=== PATIENT | male | born 1940 | race Caucasian/White ===

== ENCOUNTER 2020-09-12 21:30 | Emergency (ER) | payer MEDICARE ==
--- NOTE | 2020-09-12 22:28 | ED ---
Male Urogenital HPI - General Chief complaint: Urogenital Stated complaint: urogenital Time Seen by Provider: 09/12/20 21:39 Source: patient, RN notes reviewed, old records reviewed Mode of arrival: ambulatory Limitations: no limitations - History of Present Illness Initial comments: This is a 80-year-old male to the ER for evaluation patient has known large prostate known hematuria coming with abdominal pain difficulty with urination. Patient has otherwise no new complaints MD Complaint: dysuria -: hour(s) Location: right inguinal region, left inguinal region Severity scale (1-10): 3 Quality: sharp Consistency: constant Improves with: urination Worsens with: none new medication Reports: denies other symptoms, urinary retention - Related Data Allergies Allergy/AdvReac Type Severity Reaction Status Date / Time No Known Allergies Allergy Verified 09/12/20 21:35 Review of Systems ROS Statement: Those systems with pertinent positive or pertinent negative responses have been documented in the HPI. ROS Other: All systems not noted in ROS Statement are negative. Past Medical History Additional Past Medical History / Comment(s): urinary retention. prostate issues. prostate cx History of Any Multi-Drug Resistant Organisms: None Reported Additional Past Surgical History / Comment(s): prostate surgery Past Psychological History: No Psychological Hx Reported Smoking Status: Never smoker Past Alcohol Use History: None Reported Past Drug Use History: None Reported General Exam Limitations: no limitations General appearance: alert, in no apparent distress Head exam: Present: atraumatic, normocephalic, normal inspection Eye exam: Present: normal appearance, PERRL, EOMI. Absent: scleral icterus, conjunctival injection, periorbital swelling ENT exam: Present: normal exam, mucous membranes moist Neck exam: Present: normal inspection. Absent: tenderness, meningismus, lymphadenopathy Respiratory exam: Present: normal lung sounds bilaterally. Absent: respiratory distress, wheezes, rales, rhonchi, stridor Cardiovascular Exam: Present: regular rate, normal rhythm, normal heart sounds. Absent: systolic murmur, diastolic murmur, rubs, gallop, clicks GI/Abdominal exam: Present: soft, normal bowel sounds. Absent: distended, tenderness, guarding, rebound, rigid Extremities exam: Present: normal inspection, full ROM, normal capillary refill. Absent: tenderness, pedal edema, joint swelling, calf tenderness Back exam: Present: normal inspection Neurological exam: Present: alert, oriented X3, CN II-XII intact Psychiatric exam: Present: normal affect, normal mood Skin exam: Present: warm, dry, intact, normal color. Absent: rash Course Vital Signs 09/12/20 21:31 Temperature 98.2 F Pulse Rate 95 Respiratory 18 Rate Blood Pressure 166/97 O2 Sat by Pulse 98 Oximetry - Reevaluation(s) Reevaluation #1: 09/12/20 22:28 Record is reviewed Reevaluation #2: 09/12/20 22:28 Patient will have Garcia placed Medical Decision Making - Lab Data Result diagrams: 09/12/20 23:21 09/12/20 23:21 Lab Results 09/12/20 09/12/20 09/12/20 Range/Units 23:21 23:21 23:21 WBC 6.5 (3.8-10.6) k/uL RBC 4.71 (4.30-5.90) m/uL Hgb 15.2 (13.0-17.5) gm/dL Hct 44.0 (39.0-53.0) % MCV 93.4 (80.0-100.0) fL MCH 32.3 (25.0-35.0) pg MCHC 34.6 (31.0-37.0) g/dL RDW 13.3 (11.5-15.5) % Plt Count 222 (150-450) k/uL MPV 8.2 Neutrophils % 81 % Lymphocytes % 11 % Monocytes % 6 % Eosinophils % 0 % Basophils % 0 % Neutrophils # 5.3 (1.3-7.7) k/uL Lymphocytes # 0.7 L (1.0-4.8) k/uL Monocytes # 0.4 (0-1.0) k/uL Eosinophils # 0.0 (0-0.7) k/uL Basophils # 0.0 (0-0.2) k/uL PT 10.4 (9.0-12.0) sec INR 1.0 (<1.2) APTT 28.9 (22.0-30.0) sec Sodium (137-145) mmol/L Potassium (3.5-5.1) mmol/L Chloride (98-107) mmol/L Carbon Dioxide (22-30) mmol/L Anion Gap mmol/L BUN (9-20) mg/dL Creatinine (0.66-1.25) mg/dL Est GFR (CKD-EPI)AfAm (>60 ml/min/1.73 sqM) Est GFR (CKD-EPI)NonAf (>60 ml/min/1.73 sqM) Glucose (74-99) mg/dL Calcium (8.4-10.2) mg/dL Total Bilirubin (0.2-1.3) mg/dL AST (17-59) U/L ALT (4-49) U/L Alkaline Phosphatase (38-126) U/L Total Protein (6.3-8.2) g/dL Albumin (3.5-5.0) g/dL Amylase (30-110) U/L Lipase (23-300) U/L Urine Color Dark Red Urine Appearance Bloody (Clear) Urine RBC >182 H (0-5) /hpf Urine WBC 30 H (0-5) /hpf Urine WBC Clumps Few H (None) /hpf Urine Bacteria Rare H (None) /hpf Urine Mucus Many H (None) /hpf 09/12/20 Range/Units 23:21 WBC (3.8-10.6) k/uL RBC (4.30-5.90) m/uL Hgb (13.0-17.5) gm/dL Hct (39.0-53.0) % MCV (80.0-100.0) fL MCH (25.0-35.0) pg MCHC (31.0-37.0) g/dL RDW (11.5-15.5) % Plt Count (150-450) k/uL MPV Neutrophils % % Lymphocytes % % Monocytes % % Eosinophils % % Basophils % % Neutrophils # (1.3-7.7) k/uL Lymphocytes # (1.0-4.8) k/uL Monocytes # (0-1.0) k/uL Eosinophils # (0-0.7) k/uL Basophils # (0-0.2) k/uL PT (9.0-12.0) sec INR (<1.2) APTT (22.0-30.0) sec Sodium 132 L (137-145) mmol/L Potassium 4.0 (3.5-5.1) mmol/L Chloride 99 (98-107) mmol/L Carbon Dioxide 23 (22-30) mmol/L Anion Gap 10 mmol/L BUN 27 H (9-20) mg/dL Creatinine 0.72 (0.66-1.25) mg/dL Est GFR (CKD-EPI)AfAm >90 (>60 ml/min/1.73 sqM) Est GFR (CKD-EPI)NonAf 89 (>60 ml/min/1.73 sqM) Glucose 125 H (74-99) mg/dL Calcium 9.6 (8.4-10.2) mg/dL Total Bilirubin 0.7 (0.2-1.3) mg/dL AST 37 (17-59) U/L ALT 22 (4-49) U/L Alkaline Phosphatase 77 (38-126) U/L Total Protein 6.2 L (6.3-8.2) g/dL Albumin 3.6 (3.5-5.0) g/dL Amylase 94 (30-110) U/L Lipase 56 (23-300) U/L Urine Color Urine Appearance (Clear) Urine RBC (0-5) /hpf Urine WBC (0-5) /hpf Urine WBC Clumps (None) /hpf Urine Bacteria (None) /hpf Urine Mucus (None) /hpf Disposition Clinical Impression: Urinary retention, Hematuria Disposition: HOME SELF-CARE Condition: Good Instructions (If sedation given, give patient instructions): Urinary Retention in Men (ED), Hematuria (ED) Is patient prescribed a controlled substance at d/c from ED?: No Referrals: Loly Castorena MD [Primary Care Provider] - 1-2 days
[2020-09-12] MEDS ORDERED: SODIUM CHLORIDE 0.9% 1,000 ML IV STA ×2 (23:00)
[2020-09-12 23:41] LABS: Basophils % (A) 0 %; Eosinophils % (A) 0 %; HGB 15.2 gm/dL (13.0-17.5); Lymphocytes # (A) 0.7 k/uL (1.0-4.8); Lymphocytes % (A) 11 %; MCH 32.3 pg (25.0-35.0); MCHC 34.6 g/dL (31.0-37.0); MCV 93.4 fL (80.0-100.0); Mean Platelet Volume 8.2; Monocytes # (A) 0.4 k/uL (0-1.0); Monocytes % (A) 6 %; Neutrophils # (A) 5.3 k/uL (1.3-7.7); Neutrophils % (A) 81 %; Platelet Count 222 k/uL (150-450); RBC 4.71 m/uL (4.30-5.90); RDW 13.3 % (11.5-15.5); WBC 6.5 k/uL (3.8-10.6)
[2020-09-12 23:58] LABS: ALT 22 U/L (4-49); AST 37 U/L (17-59); African American GFR (CKD) >90 (>60 ml/min/1.73 sqM); Albumin 3.6 g/dL (3.5-5.0); Alkaline Phosphatase 77 U/L (38-126); Amylase 94 U/L (30-110); Anion Gap 10 mmol/L; Blood Urea Nitrogen 27 mg/dL (9-20); Calcium 9.6 mg/dL (8.4-10.2); Carbon Dioxide 23 mmol/L (22-30); Chloride 99 mmol/L (98-107); Glucose 125 mg/dL (74-99); Lipase 56 U/L (23-300); Non-African American GFR(CKD) 89 (>60 ml/min/1.73 sqM); Sodium 132 mmol/L (137-145); Total Bilirubin 0.7 mg/dL (0.2-1.3); Total Protein 6.2 g/dL (6.3-8.2)
[2020-09-13] LABS: Partial Thromboplastin Time 28.9 sec (22.0-30.0); Prothrombin Time 10.4 sec (9.0-12.0)
[2020-09-13 00:06] LABS: Bacteria,Urine Rare /hpf; Mucus,Urine Many /hpf; WBC,Urine 30 /hpf (0-5)
[2020-09-13 00:11] LABS: Appearance,Urine Bloody (Clear); Color,Urine Dark Red
[2020-09-13 00:12] LABS: RBC,Urine >182 /hpf (0-5)
[2020-09-13] MEDS ORDERED: CEPHALEXIN 500MG STARTER PACK 4 CAP BTL PO STA (00:35)
[2020-09-13] MEDS ORDERED: CEPHALEXIN 500 MG CAP PO STA (00:35)
[2020-09-13 01:52] VITALS: BP 150/82; PULSE 90; RESP 20; TEMP 97.9
== END 2020-09-13 01:10 | disposition home or self-care (01) ==
LOC: EC 21:30
DX: R33.9 Retention of urine, unspecified (principal); R31.9 Hematuria, unspecified; R30.0 Dysuria; R10.31 Right lower quadrant pain; R10.32 Left lower quadrant pain
CPT/HCPCS: 36415; 80053; 82150; 83690; 85025; 85610; 85730; 81001; 87086; 87077; 87186; 99284; 96365; 96361; 51702; J0696

== ENCOUNTER 2021-07-06 05:23 | Emergency (ER) | payer MEDICARE ==
[2021-07-06 05:31] VITALS: TEMP 97.7
[2021-07-06] MEDS ORDERED: LIDOCAINE URO-JET JELLY 2% 5 ML KIT URETHRAL ONE (06:21)
--- NOTE | 2021-07-06 06:25 | ED ---
Male Urogenital HPI - General Chief complaint: Urogenital Stated complaint: Blood in urine Time Seen by Provider: 07/06/21 05:58 Source: patient, family, RN notes reviewed, old records reviewed Mode of arrival: ambulatory Limitations: no limitations - History of Present Illness Initial comments: Patient is a 80-year-old male presents emergency department today with his . He complains of hematuria since Saturday evening. He states that he has had a history of enlarged prostate and has had previous TURP procedure. Patient reports that he started with some fullness and discomfort in his abdomen and worsening hematuria throughout the night decided to come to the ER. Patient reports previously on this happened he did require Meyers catheter. Patient states that he has had no fevers or chills. He denies flank pain. Patient is not on blood thinners. - Related Data Previous Rx's Medication Instructions Recorded Ciprofloxacin HCl [Cipro] 500 mg PO Q12HR 10 Days #20 tab 07/06/21 Allergies Allergy/AdvReac Type Severity Reaction Status Date / Time No Known Allergies Allergy Verified 07/06/21 05:31 Review of Systems ROS Statement: Those systems with pertinent positive or pertinent negative responses have been documented in the HPI. ROS Other: All systems not noted in ROS Statement are negative. Past Medical History Additional Past Medical History / Comment(s): urinary retention. prostate issues. prostate cx History of Any Multi-Drug Resistant Organisms: None Reported Additional Past Surgical History / Comment(s): prostate surgery Past Psychological History: No Psychological Hx Reported Smoking Status: Never smoker Past Alcohol Use History: None Reported Past Drug Use History: None Reported General Exam - General Exam Comments Initial Comments: Pleasant 80 year old male. Limitations: no limitations General appearance: alert, in no apparent distress Head exam: Present: atraumatic, normocephalic, normal inspection Eye exam: Present: normal appearance, PERRL, EOMI. Absent: scleral icterus, conjunctival injection, periorbital swelling ENT exam: Present: normal exam, mucous membranes moist Neck exam: Present: normal inspection. Absent: tenderness, meningismus, lymphadenopathy Respiratory exam: Present: normal lung sounds bilaterally. Absent: respiratory distress, wheezes, rales, rhonchi, stridor Cardiovascular Exam: Present: regular rate, normal rhythm, normal heart sounds. Absent: systolic murmur, diastolic murmur, rubs, gallop, clicks GI/Abdominal exam: Present: soft, normal bowel sounds, other (suprapubic tenderness ). Absent: distended, tenderness, guarding, rebound, rigid Extremities exam: Present: normal inspection, full ROM, normal capillary refill. Absent: tenderness, pedal edema, joint swelling, calf tenderness Back exam: Present: normal inspection Neurological exam: Present: alert, oriented X3, CN II-XII intact Psychiatric exam: Present: normal affect, normal mood Skin exam: Present: warm, dry, intact, normal color. Absent: rash Course Vital Signs 07/06/21 05:24 Temperature 97.7 F Pulse Rate 75 Respiratory 22 Rate Blood Pressure 138/87 Medical Decision Making - Medical Decision Making Patient's age 80-year-old male who presents with hematuria for the past 5 days. Patient at this time does have significant hematuria noted. Patient has had a history of TURP procedure. With concern for the amount of blood and developing clots and eventual urinary retention Patient had Meyers catheter placed. Patient tolerated this well. We did check a CBC which shows normal limits with no significant anemia. Chemistry panel shows normal kidney function. Urine culture will be completed. She was given an IV 1 g of Rocephin concern for occult infection with significant hematuria. He'll be started on ciprofloxacin taking this for one week. Prescription and sent to [facility]. Patient has an appointment with urologist on Saturday. Discussed meyers catheter to remain in until then. Patient had meyers catheter education. - Lab Data Result diagrams: 07/06/21 06:38 07/06/21 06:38 Lab Results 07/06/21 07/06/21 07/06/21 Range/Units 06:10 06:38 06:38 WBC 3.5 L (3.8-10.6) k/uL RBC 5.18 (4.30-5.90) m/uL Hgb 16.1 (13.0-17.5) gm/dL Hct 49.0 (39.0-53.0) % MCV 94.7 (80.0-100.0) fL MCH 31.1 (25.0-35.0) pg MCHC 32.8 (31.0-37.0) g/dL RDW 13.5 (11.5-15.5) % Plt Count 213 (150-450) k/uL MPV 8.2 Sodium 137 (137-145) mmol/L Potassium 4.1 (3.5-5.1) mmol/L Chloride 107 (98-107) mmol/L Carbon Dioxide 25 (22-30) mmol/L Anion Gap 5 mmol/L BUN 19 (9-20) mg/dL Creatinine 0.80 (0.66-1.25) mg/dL Est GFR (CKD-EPI)AfAm >90 (>60 ml/min/1.73 sqM) Est GFR (CKD-EPI)NonAf 86 (>60 ml/min/1.73 sqM) Glucose 93 (74-99) mg/dL Calcium 9.1 (8.4-10.2) mg/dL Urine Color Red Urine Appearance Bloody (Clear) Urine RBC >182 H (0-5) /hpf Urine WBC >182 H (0-5) /hpf Disposition Clinical Impression: Hematuria, Hx of transurethral prostatectomy Disposition: HOME SELF-CARE Condition: Good Instructions (If sedation given, give patient instructions): Hematuria (ED), Meyers Catheter Placement and Care (ED) Additional Instructions: Patient advised follow-up with urologist on Saturday. Patient should have the Meyers catheter remain in place until then. Patient should increase fluids. Take antibiotic with food. Take probiotic supplement daily as well. Prescriptions: Ciprofloxacin HCl [Cipro] 500 mg PO Q12HR 10 Days #20 tab Is patient prescribed a controlled substance at d/c from ED?: No Referrals: Yaquelin Nice MD [Primary Care Provider] - 1-2 days Time of Disposition: 07:26
[2021-07-06 06:41] LABS: RBC,Urine >182 /hpf (0-5); WBC,Urine >182 /hpf (0-5)
[2021-07-06 06:43] LABS: Appearance,Urine Bloody (Clear); Color,Urine Red
[2021-07-06] MEDS ORDERED: cefTRIAXone IN SWFI 1,000 MG/10 ML SYRINGE IVP STA (06:55)
[2021-07-06 06:58] LABS: HGB 16.1 gm/dL (13.0-17.5); MCH 31.1 pg (25.0-35.0); MCHC 32.8 g/dL (31.0-37.0); MCV 94.7 fL (80.0-100.0); Mean Platelet Volume 8.2; Platelet Count 213 k/uL (150-450); RBC 5.18 m/uL (4.30-5.90); RDW 13.5 % (11.5-15.5); WBC 3.5 k/uL (3.8-10.6)
[2021-07-06 07:13] LABS: African American GFR (CKD) >90 (>60 ml/min/1.73 sqM); Anion Gap 5 mmol/L; Blood Urea Nitrogen 19 mg/dL (9-20); Calcium 9.1 mg/dL (8.4-10.2); Carbon Dioxide 25 mmol/L (22-30); Chloride 107 mmol/L (98-107); Glucose 93 mg/dL (74-99); Non-African American GFR(CKD) 86 (>60 ml/min/1.73 sqM); Potassium 4.1 mmol/L (3.5-5.1); Sodium 137 mmol/L (137-145)
[2021-07-06 07:34] VITALS: BP 127/86; PULSE 63; RESP 18
[2021-07-06 08:27] LABS: Eosinophils # (M) 0.04 k/uL (0-0.7); Lymphocytes # (M) 2.21 k/uL (1.0-4.8); Monocytes # (M) 0.49 k/uL (0-1.0); Neutrophils # (M) 0.77 k/uL (1.3-7.7); Neutrophils % (M) 22 %; Nucleated Red Blood Cells 0 /100 WBC (0-0); Total Cells Counted 100
[2021-07-06 08:44] LABS: RBC Morphology Normal
== END 2021-07-06 07:50 | disposition home or self-care (01) ==
LOC: EC 05:23
DX: R31.9 Hematuria, unspecified (principal); Z90.79 Acquired absence of other genital organ(s)
CPT/HCPCS: 99283; 96374; 51702; 51798; 36415; 80048; 85025; 81001; 87086; J0696; 99284

== ENCOUNTER 2022-04-17 02:19 | Emergency (ER) | payer MEDICARE ==
[2022-04-17 02:27] VITALS: TEMP 98.6
--- NOTE | 2022-04-17 03:36 | ED ---
General Adult HPI - General Chief complaint: Urogenital Stated complaint: Unable to Urinate Time Seen by Provider: 04/17/22 02:31 Source: patient, RN notes reviewed Mode of arrival: ambulatory Limitations: no limitations - History of Present Illness Initial comments: 81-year-old male presents to the emergency Department with complaints of inability to urinate. States he had prostate surgery 2 weeks ago. Describes his urine as clear-yellow with sediment. Has dribbled some urine this evening, however has been unable to empty his bladder since last night. States he is scheduled to see his urologist for recheck at 11 AM, however is growing concerned with his inability to pass urine. Denies fever, chills, headache chest pain, shortness of breath, abdominal pain, nausea, vomiting, flank and back pain, and lower extremity edema. - Related Data Previous Rx's Medication Instructions Recorded Ciprofloxacin HCl [Cipro] 500 mg PO Q12HR 10 Days #20 tab 07/06/21 Ciprofloxacin HCl [Cipro] 500 mg PO Q12HR #20 tablet 04/17/22 Allergies Allergy/AdvReac Type Severity Reaction Status Date / Time No Known Allergies Allergy Verified 07/06/21 05:31 Review of Systems ROS Statement: Those systems with pertinent positive or pertinent negative responses have been documented in the HPI. ROS Other: All systems not noted in ROS Statement are negative. Past Medical History Additional Past Medical History / Comment(s): urinary retention. prostate issues. prostate cx History of Any Multi-Drug Resistant Organisms: None Reported Additional Past Surgical History / Comment(s): prostate surgery Past Psychological History: No Psychological Hx Reported Smoking Status: Never smoker Past Alcohol Use History: None Reported Past Drug Use History: None Reported General Exam Limitations: no limitations General appearance: alert, in no apparent distress Respiratory exam: Present: normal lung sounds bilaterally. Absent: respiratory distress, wheezes, rales, rhonchi, stridor Cardiovascular Exam: Present: regular rate, normal rhythm, normal heart sounds. Absent: systolic murmur, diastolic murmur, rubs, gallop, clicks GI/Abdominal exam: Present: soft, distended (Mild distention of the lower abdomen in the suprapubic area. Minimal tenderness, no guarding or rebound.), normal bowel sounds. Absent: tenderness, guarding, rebound, rigid Back exam: Absent: CVA tenderness (R), CVA tenderness (L) Neurological exam: Present: alert, oriented X3 Psychiatric exam: Present: normal affect, normal mood Course Vital Signs 04/17/22 04/17/22 02:23 04:59 Temperature 98.6 F Pulse Rate 84 78 Respiratory 18 15 Rate Blood Pressure 165/80 144/78 O2 Sat by Pulse 98 100 Oximetry - Reevaluation(s) Reevaluation #1: 04/17/22 03:35 Patient reports urged to urinate and has made several attempts since arrival. Discussed bladder scan with likely Garcia placement. Patient is agreeable with this plan of care. 04/17/22 04:00 Bladder scanned 370ml, straight cath urine obtained and sent for analysis. Urine was dark yellow with significant amount of sediment. Will reevaluate. 04/17/22 04:40 Patient will be discharged home to follow up with his urologist as scheduled. Antibiotic treatment initiated. He is able to pass urine. Medical Decision Making - Medical Decision Making 81-year-old male with recent prostatic surgery presents to the emergency department for evaluation of urinary retention. Upon exam, patient is well- appearing, though in moderate discomfort. Abdomen is soft with some suprapubic tenderness. Bladder scan shows 370ml. Straight cath urine sample was obtained showing the large leukocyte esterase, more than 182 rbc's per HPF, I 144 urine WBCs per HPF, and moderate amount of urine WBC clumps. Antibiotic treatment with Cipro was initiated. Patient was able to urinate after straight cath. He will be discharged home to follow up with his urologist today as scheduled. Return parameters discussed in detail. Patient verbalizes understanding and agrees with this plan. Attending: Skylar Was pt. sent in by a medical professional or institution? @ -No Did you speak to anyone other than the patient for history? @ -No Did you review nursing and triage notes? @ -Yes, agree Were old charts reviewed? @ -No Differential Diagnosis? @ -UTI, urine retention, BPH, cystitis, prostatitis, this is not meant to be an exhaustive list EKG interpreted by me (3pts min.)? @ -Not applicable X-rays interpreted by me (1pt min.)? @ -Not applicable CT interpreted by me (1pt min.)? @ -Not applicable U/S interpreted by me (1pt. min.)? @ -Not applicable What testing was considered but not performed? (CT, X-rays, U/S, labs)? Why? @ -Laboratory studies were considered, however patient had no systemic symptoms therefore a urinalysis was performed What meds were considered but not given? Why? @ -Considered something for pain, however patient felt better after straight cath Did you discuss the management of the patient with other professionals? @ -None Did you reconcile home meds? @ -No Was smoking cessation discussed for >3mins.? @ -No Was critical care preformed (if so, how long)? @ -No Were there social determinants of health that impacted care today? How? (Homelessness, low income, unemployed, alcoholism, drug addiction, transportation, low edu. Level, literacy, decrease access to med. care, shelter, rehab)? @ -No Was there de-escalation of care discussed even if they declined? (Discuss DNR or withdrawal of care, Hospice)? @ -No What co-morbidities impacted this encounter? (DM, HTN, Smoking, COPD, CAD, Cancer, CVA, Hep., AIDS, mental health diagnosis, sleep apnea, morbid obesity)? @ -No Was patient admitted / discharged? @ -Discharged Undiagnosed new problem with uncertain prognosis? @ -None Drug Therapy requiring intensive monitoring for toxicity (Heparin, Nitro, Insulin, Cardizem)? @ -None Were any procedures done? @ -None Diagnosis/symptom? @ -Urine retention Acute, or Chronic, or Acute on Chronic? @ -Acute Uncomplicated (without systemic symptoms) or Complicated (systemic symptoms)? @ -Complicated Side effects of treatment? @ -None Exacerbation, Progression, or Severe Exacerbation] @ -No Poses a threat to life or bodily function? @ -Moderate risk to bodily function Diagnosis/symptom? @ -UTI Acute, or Chronic, or Acute on Chronic? @ -Acute Uncomplicated (without systemic symptoms) or Complicated (systemic symptoms)? @ -Uncomplicated Side effects of treatment? @ -None Exacerbation, Progression, or Severe Exacerbation] @ -no Poses a threat to life or bodily function? @ -Low risk - Lab Data Lab Results 04/17/22 Range/Units 03:47 Urine Color Yellow Urine Appearance Turbid (Clear) Urine pH 7.5 (5.0-8.0) Ur Specific [place] 1.016 (1.001-1.035) Urine Protein 2+ H (Negative) Urine Glucose (UA) Negative (Negative) Urine Ketones Negative (Negative) Urine Blood Moderate H (Negative) Urine Nitrite Positive (Negative) Urine Bilirubin Negative (Negative) Urine Urobilinogen <2.0 (<2.0) mg/dL Ur Leukocyte Esterase Large H (Negative) Urine RBC >182 H (0-5) /hpf Urine WBC 144 H (0-5) /hpf Urine WBC Clumps Moderate H (None) /hpf Urine Bacteria Rare H (None) /hpf Urine Mucus Occasional H (None) /hpf Disposition Clinical Impression: Urinary tract infection, Urinary retention Disposition: HOME SELF-CARE Condition: Stable Instructions (If sedation given, give patient instructions): Urinary Retention in Men (ED) Additional Instructions: Discuss urine retention with urologist at appointment today. You are being prescribed an antibiotic due to UTI. Return to the emergency department with any new, worsening, or concerning symptoms. Prescriptions: Ciprofloxacin HCl [Cipro] 500 mg PO Q12HR #20 tablet Is patient prescribed a controlled substance at d/c from ED?: No Referrals: Yaquelin Nice MD [Primary Care Provider] - 1-2 days Time of Disposition: 04:45
[2022-04-17 04:19] LABS: Appearance,Urine Turbid (Clear); Bacteria,Urine Rare /hpf; Bilirubin,Urine Negative (Negative); Blood,Urine Moderate (Negative); Color,Urine Yellow; Glucose,Urine (UA) Negative (Negative); Ketones,Urine Negative (Negative); Leukocyte Esterase,Urine Large (Negative); Mucus,Urine Occasional /hpf; Nitrite,Urine Positive (Negative); PH, Urine 7.5 (5.0-8.0); Protein,Urine 2+ (Negative); RBC,Urine >182 /hpf (0-5); Specific Gravity,Urine 1.016 (1.001-1.035); Urobilinogen,Urine <2.0 mg/dL (<2.0); WBC,Urine 144 /hpf (0-5)
[2022-04-17] MEDS ORDERED: CIPROFLOXACIN HCL 500 MG TAB PO STA (04:39)
[2022-04-17 05:00] VITALS: BP 144/78; PULSE 78; RESP 15
== END 2022-04-17 05:00 | disposition home or self-care (01) ==
LOC: EC 02:19
DX: N39.0 Urinary tract infection, site not specified (principal); R33.9 Retention of urine, unspecified
CPT/HCPCS: 81001; 87086; 99283

== ENCOUNTER 2023-05-16 11:05 | Emergency (ER) | payer MEDICARE ==
--- NOTE | 2023-05-16 11:58 | ED ---
General Adult HPI - General Chief complaint: Urogenital Stated complaint: Unable to urinate, catheter not working Time Seen by Provider: 05/16/23 11:33 Source: patient, RN notes reviewed Mode of arrival: ambulatory Limitations: no limitations - History of Present Illness Initial comments: Patient 82-year-old male presented to the emergency room today with chief complaint hematuria. Patient does admit that he noticed a small mount of blood in his urine yesterday. States it is worse in middle the night. He states he was able to see his urologist this morning who did place a Garcia catheter and try to flush in the office. He was directed that he should go to the hospital. He states he was unable to find the hospital that is urologist wanted to go to so he came back here to [facility] as he lives close to this area. Patient states that Garcia catheter seems to be draining patient is seen blood in the back. He denies any discomfort at this time. He denies any dizziness, lightheadedness, shortness of breath. Denies any other complaints or any other symptoms. - Related Data Home Medications Medication Instructions Recorded Confirmed Ascorbic Acid [Vitamin C] 500 mg PO DAILY 05/16/23 05/16/23 Calcium Carbonate [Calcium] 2,400 mg PO DAILY 05/16/23 05/16/23 Cholecalciferol [Vitamin D3 (25 200 mcg PO DAILY 05/16/23 05/16/23 Mcg = 1000 Iu)] Curcumin-Phosphatidylcholine 500 mg PO DAILY 05/16/23 05/16/23 [Curcumin Phytosome] L.acidoph,Paracasei, B.lactis 1 cap PO DAILY 05/16/23 05/16/23 [Probiotic] Liver Detox Supplement 1 cap PO DAILY 05/16/23 05/16/23 Niacin 500 mg PO DAILY 05/16/23 05/16/23 [place]sey Guard Supplement 6 cap PO DAILY 05/16/23 05/16/23 Prasterone (Dhea) [Dhea] 50 mg PO DAILY 05/16/23 05/16/23 Selenium 100 mcg PO DAILY 05/16/23 05/16/23 Tamsulosin [Flomax] 0.4 mg PO DAILY 05/16/23 05/16/23 Thyroid,Pork [Freight Car Builder Thyroid] 60 mg PO DAILY 05/16/23 05/16/23 Ubidecarenone [Q-Sorb Co Q-10] 200 mg PO DAILY 05/16/23 05/16/23 Vitamin B Complex 1 cap PO DAILY 05/16/23 05/16/23 Zinc Gluconate [Zinc] 50 mg PO DAILY 05/16/23 05/16/23 Allergies Allergy/AdvReac Type Severity Reaction Status Date / Time No Known Allergies Allergy Verified 05/16/23 14:15 Review of Systems ROS Statement: Those systems with pertinent positive or pertinent negative responses have been documented in the HPI. ROS Other: All systems not noted in ROS Statement are negative. Past Medical History Past Medical History: Cancer Additional Past Medical History / Comment(s): urinary retention. prostate issues. prostate cx History of Any Multi-Drug Resistant Organisms: None Reported Past Surgical History: Orthopedic Surgery Additional Past Surgical History / Comment(s): prostate surgery Past Psychological History: No Psychological Hx Reported Smoking Status: Never smoker Past Alcohol Use History: None Reported Past Drug Use History: None Reported General Exam - General Exam Comments Initial Comments: General: The patient is awake and alert, in no distress, and does not appear acutely ill. Eye: Extra-ocular movements are intact. There is normal conjunctiva bilaterally. No signs of icterus. Ears, nose, mouth and throat: There are moist mucous membranes and no oral lesions. Neck: The neck is supple, there is no tenderness or JVD. Respiratory: respirations are non-labored Gastrointestinal: Abdomen soft on palpation nontender. No rebound, guarding. Musculoskeletal: Normal ROM, no tenderness. Neurological: A&O x 3. CN II-XII intact, There are no obvious motor or sensory deficits. Coordination appears grossly intact. Speech is normal. Skin: Skin is warm and dry and no rashes or lesions are noted. Psychiatric: Cooperative, appropriate mood & affect, normal judgment. Limitations: no limitations Course Vital Signs 05/16/23 05/16/23 05/16/23 11:13 14:40 14:56 Temperature 98.1 F 98.1 F 97.5 F L Pulse Rate 82 76 63 Respiratory 20 18 18 Rate Blood Pressure 138/77 130/68 139/75 O2 Sat by Pulse 96 99 98 Oximetry Medical Decision Making - Medical Decision Making History was obtained from patient/Nurse/Family/ Initial assessment and chief complaint: Hematuria Chronic conditions affecting care: Enlarged prostate, prostate cancer Social determinants affecting care: None Patient 82-year-old male presented to the emergency room today with a chief complaint of hematuria. He does admit that symptoms started middle of the night. Went to his urologist office. Did have a Garcia catheter that was placed and they were trying to flush but was recommended to come to the emergency r oom. Patient denies feeling dizzy, lightheaded. No pain. Garcia catheter in place. Was irrigated by nursing staff. The emergency room. Has cleared any clots. Bladder scan was obtained which was negative for any sign of retention. Patient Garcia catheter still draining. Blood work was obtained showed stable hemoglobin. Remaining labs unremarkable. Vitals have been stable here in the emergency room. Patient does feel comfortable being discharged home to follow- up with his urologist. Advised that if there is any retention to return here to the emergency room. Patient and at bedside state understanding and agreement with the plan. - Lab Data Result diagrams: 05/16/23 12:43 05/16/23 12:19 Lab Results 05/16/23 05/16/23 05/16/23 Range/Units 12:19 12:19 12:19 WBC (3.8-10.6) k/uL RBC (4.30-5.90) m/uL Hgb (13.0-17.5) gm/dL Hct (39.0-53.0) % MCV (80.0-100.0) fL MCH (25.0-35.0) pg MCHC (31.0-37.0) g/dL RDW (11.5-15.5) % Plt Count (150-450) k/uL MPV Neutrophils % % Lymphocytes % % Monocytes % % Eosinophils % % Basophils % % Neutrophils # (1.3-7.7) k/uL Lymphocytes # (1.0-4.8) k/uL Monocytes # (0-1.0) k/uL Eosinophils # (0-0.7) k/uL Basophils # (0-0.2) k/uL PT 10.9 (10.0-12.5) sec INR 1.0 (<1.2) APTT 34.0 H (22.0-30.0) sec Sodium 137 (137-145) mmol/L Potassium 4.0 (3.5-5.1) mmol/L Chloride 106 (98-107) mmol/L Carbon Dioxide 25 (22-30) mmol/L Anion Gap 6 mmol/L BUN 23 H (9-20) mg/dL Creatinine 0.72 (0.66-1.25) mg/dL Est GFR (CKD-EPI)AfAm >90 (>60 ml/min/1.73 sqM) Est GFR (CKD-EPI)NonAf 88 (>60 ml/min/1.73 sqM) Glucose 120 H (74-99) mg/dL Calcium 8.8 (8.4-10.2) mg/dL Total Bilirubin 1.0 (0.2-1.3) mg/dL AST 44 (17-59) U/L ALT 23 (4-49) U/L Alkaline Phosphatase 81 (38-126) U/L Total Protein 7.0 (6.3-8.2) g/dL Albumin 3.5 (3.5-5.0) g/dL Urine Color Red Urine Appearance Clear (Clear) Urine RBC 12 H (0-5) /hpf Urine WBC 4 (0-5) /hpf Urine Bacteria Occasional H (None) /hpf Urine Mucus Rare H (None) /hpf 05/16/23 Range/Units 12:43 WBC 4.8 (3.8-10.6) k/uL RBC 5.11 (4.30-5.90) m/uL Hgb 15.6 (13.0-17.5) gm/dL Hct 47.1 (39.0-53.0) % MCV 92.1 (80.0-100.0) fL MCH 30.4 (25.0-35.0) pg MCHC 33.0 (31.0-37.0) g/dL RDW 14.2 (11.5-15.5) % Plt Count 265 (150-450) k/uL MPV 8.8 Neutrophils % 54 % Lymphocytes % 30 % Monocytes % 11 % Eosinophils % 0 % Basophils % 1 % Neutrophils # 2.6 (1.3-7.7) k/uL Lymphocytes # 1.4 (1.0-4.8) k/uL Monocytes # 0.5 (0-1.0) k/uL Eosinophils # 0.0 (0-0.7) k/uL Basophils # 0.0 (0-0.2) k/uL PT (10.0-12.5) sec INR (<1.2) APTT (22.0-30.0) sec Sodium (137-145) mmol/L Potassium (3.5-5.1) mmol/L Chloride (98-107) mmol/L Carbon Dioxide (22-30) mmol/L Anion Gap mmol/L BUN (9-20) mg/dL Creatinine (0.66-1.25) mg/dL Est GFR (CKD-EPI)AfAm (>60 ml/min/1.73 sqM) Est GFR (CKD-EPI)NonAf (>60 ml/min/1.73 sqM) Glucose (74-99) mg/dL Calcium (8.4-10.2) mg/dL Total Bilirubin (0.2-1.3) mg/dL AST (17-59) U/L ALT (4-49) U/L Alkaline Phosphatase (38-126) U/L Total Protein (6.3-8.2) g/dL Albumin (3.5-5.0) g/dL Urine Color Urine Appearance (Clear) Urine RBC (0-5) /hpf Urine WBC (0-5) /hpf Urine Bacteria (None) /hpf Urine Mucus (None) /hpf Disposition Clinical Impression: Hematuria Disposition: HOME SELF-CARE Instructions (If sedation given, give patient instructions): Hematuria (ED) Additional Instructions: Please follow-up with urologist as discussed. Return to the emergency room for any other concerns. Is patient prescribed a controlled substance at d/c from ED?: No Referrals: Yaquelin Nice MD [Primary Care Provider] - 1-2 days Time of Disposition: 16:13
[2023-05-16] MEDS ORDERED: SODIUM CHLORIDE 0.9% IRRIGATIO 3,000 ML IRRIGATION ONE (12:16)
[2023-05-16 12:55] LABS: ALT 23 U/L (4-49); African American GFR (CKD) >90 (>60 ml/min/1.73 sqM); Albumin 3.5 g/dL (3.5-5.0); Anion Gap 6 mmol/L; Blood Urea Nitrogen 23 mg/dL (9-20); Calcium 8.8 mg/dL (8.4-10.2); Carbon Dioxide 25 mmol/L (22-30); Chloride 106 mmol/L (98-107); Glucose 120 mg/dL (74-99); Non-African American GFR(CKD) 88 (>60 ml/min/1.73 sqM); Sodium 137 mmol/L (137-145)
[2023-05-16 12:57] LABS: Prothrombin Time 10.9 sec (10.0-12.5)
[2023-05-16 12:59] LABS: AST 44 U/L (17-59); Alkaline Phosphatase 81 U/L (38-126)
[2023-05-16 13:07] LABS: Bacteria,Urine Occasional /hpf; Mucus,Urine Rare /hpf; RBC,Urine 12 /hpf (0-5); WBC,Urine 4 /hpf (0-5)
[2023-05-16 13:11] LABS: Appearance,Urine Clear (Clear); Color,Urine Red
[2023-05-16 13:46] LABS: Basophils % (A) 1 %; Eosinophils % (A) 0 %; HCT 47.1 % (39.0-53.0); HGB 15.6 gm/dL (13.0-17.5); Lymphocytes # (A) 1.4 k/uL (1.0-4.8); Lymphocytes % (A) 30 %; MCH 30.4 pg (25.0-35.0); MCV 92.1 fL (80.0-100.0); Mean Platelet Volume 8.8; Monocytes # (A) 0.5 k/uL (0-1.0); Monocytes % (A) 11 %; Neutrophils # (A) 2.6 k/uL (1.3-7.7); Neutrophils % (A) 54 %; Platelet Count 265 k/uL (150-450); RBC 5.11 m/uL (4.30-5.90); RDW 14.2 % (11.5-15.5); WBC 4.8 k/uL (3.8-10.6)
[2023-05-16] MEDS ORDERED: ACETAMINOPHEN TAB 500 MG TAB PO STA (14:51)
[2023-05-16 18:19] VITALS: BP 120/73; PULSE 69; RESP 20; TEMP 98.2
== END 2023-05-16 18:04 | disposition home or self-care (01) ==
LOC: EC 11:05
DX: R31.9 Hematuria, unspecified (principal)
CPT/HCPCS: 36415; 80053; 81001; 85025; 85610; 85730; 99283

== ENCOUNTER 2023-05-19 19:16 | Emergency (ER) | payer MEDICARE ==
[2023-05-19 20:00] VITALS: RESP 18; TEMP 98.4
[2023-05-19 20:53] VITALS: BP 125/73; PULSE 89
--- NOTE | 2023-05-19 21:32 | ED ---
General Adult HPI - General Chief complaint: Urogenital Stated complaint: cath issues Time Seen by Provider: 05/19/23 20:42 Source: patient Mode of arrival: ambulatory Limitations: no limitations - History of Present Illness Initial comments: 82-year-old male with a past medical history significant for urinary retention presenting to the ED with a chief complaint of hematuria. Patient states that he recently had a Garcia catheter placed by his urologist secondary to urinary retention and hematuria. Patient states that he is presenting again today be cause he still having hematuria and is unsure of what to do. They have been flushing this well with no difficulties. It is still draining. Denies fever or any other new symptoms. No other complaints at this time. - Related Data Home Medications Medication Instructions Recorded Confirmed Ascorbic Acid [Vitamin C] 500 mg PO DAILY 05/16/23 05/16/23 Calcium Carbonate [Calcium] 2,400 mg PO DAILY 05/16/23 05/16/23 Cholecalciferol [Vitamin D3 (25 200 mcg PO DAILY 05/16/23 05/16/23 Mcg = 1000 Iu)] Curcumin-Phosphatidylcholine 500 mg PO DAILY 05/16/23 05/16/23 [Curcumin Phytosome] L.acidoph,Paracasei, B.lactis 1 cap PO DAILY 05/16/23 05/16/23 [Probiotic] Liver Detox Supplement 1 cap PO DAILY 05/16/23 05/16/23 Niacin 500 mg PO DAILY 05/16/23 05/16/23 Mulberry Guard Supplement 6 cap PO DAILY 05/16/23 05/16/23 Prasterone (Dhea) [Dhea] 50 mg PO DAILY 05/16/23 05/16/23 Selenium 100 mcg PO DAILY 05/16/23 05/16/23 Tamsulosin [Flomax] 0.4 mg PO DAILY 05/16/23 05/16/23 Thyroid,Pork [Kitchen Food Server Thyroid] 60 mg PO DAILY 05/16/23 05/16/23 Ubidecarenone [Q-Sorb Co Q-10] 200 mg PO DAILY 05/16/23 05/16/23 Vitamin B Complex 1 cap PO DAILY 05/16/23 05/16/23 Zinc Gluconate [Zinc] 50 mg PO DAILY 05/16/23 05/16/23 Allergies Allergy/AdvReac Type Severity Reaction Status Date / Time No Known Allergies Allergy Verified 05/19/23 19:39 Review of Systems ROS Statement: Those systems with pertinent positive or pertinent negative responses have been documented in the HPI. ROS Other: All systems not noted in ROS Statement are negative. Past Medical History Past Medical History: Cancer Additional Past Medical History / Comment(s): urinary retention. prostate issues. prostate cx History of Any Multi-Drug Resistant Organisms: None Reported Past Surgical History: Orthopedic Surgery Additional Past Surgical History / Comment(s): prostate surgery Past Psychological History: No Psychological Hx Reported Smoking Status: Never smoker Past Alcohol Use History: None Reported Past Drug Use History: None Reported General Exam Limitations: no limitations General appearance: alert, in no apparent distress Eye exam: Present: normal appearance Neck exam: Present: normal inspection Respiratory exam: Present: normal lung sounds bilaterally Cardiovascular Exam: Present: regular rate, normal rhythm GI/Abdominal exam: Present: soft exam: Present: other (Garcia catheter in place draining well with no problems. Hematuria in the bag however does appear clear and blood-tinged. No debris in the bag. ) Extremities exam: Present: normal inspection Course Vital Signs 05/19/23 05/19/23 19:35 20:48 Temperature 98.4 F Pulse Rate 95 89 Respiratory 18 18 Rate Blood Pressure 126/76 125/73 O2 Sat by Pulse 98 97 Oximetry Medical Decision Making - Medical Decision Making Was pt. sent in by a medical professional or institution (, PA, ECHOCARDIOLOGIST, urgent care, hospital, or usp...) When possible be specific @ -No Did you speak to anyone other than the patient for history (EMS, parent, family, police, friend...)? What history was obtained from this source @ -No Did you review nursing and triage notes (agree or disagree)? Why? @ -I reviewed and agree with nursing and triage notes Were old charts reviewed (outside hosp., previous admission, EMS record, old EKG, old radiological studies, urgent care reports/EKG's, usp records)? Report findings @ -Prior visit reviewed showing history of hematuria. Last UA did show positive blood and RBCs. This was on 05/16/2023. Differential Diagnosis (chest pain, altered mental status, abdominal pain women, abdominal pain men, vaginal bleeding, weakness, fever, dyspnea, syncope, headache, dizziness, GI bleed, back pain, seizure, CVA, palpatations, mental health, musculoskeletal)? @ -Pyelonephritis, urinary tract infection, urinary retention. This is not meant to be an all-inclusive list. EKG interpreted by me (3pts min.). @ -None X-rays interpreted by me (1pt min.). @ -None done CT interpreted by me (1pt min.). @ -None done U/S interpreted by me (1pt. min.). @ -None done What testing was considered but not performed or refused? (CT, X-rays, U/S, labs)? Why? @ -None What meds were considered but not given or refused? Why? @ -None Did you discuss the management of the patient with other professionals (professionals i.e. , PA, ECHOCARDIOLOGIST, lab, RT, psych nurse, outreach and education social worker, piped buttonhole machine operator, teacher, global safety officer, director of casework services)? Give summary @ -No Was smoking cessation discussed for >3mins.? @ -No Was critical care preformed (if so, how long)? @ -No Were there social determinants of health that impacted care today? How? (Homelessness, low income, unemployed, alcoholism, drug addiction, transportation, low edu. Level, literacy, decrease access to med. care, half-way, rehab)? @ -No Was there de-escalation of care discussed even if they declined (Discuss DNR or withdrawal of care, Hospice)? DNR status @ -No What co-morbidities impacted this encounter? (DM, HTN, Smoking, COPD, CAD, Cancer, CVA, ARF, Chemo, Hep., AIDS, mental health diagnosis, sleep apnea, morbid obesity)? @ -BPH Was patient admitted / discharged? Hospital course, mention meds given and route, prescriptions, significant lab abnormalities, going to OR and other pertinent info. @ -Discharge 82-year-old male with recent history of Garcia placement secondary to urinary retention presenting to the ED with complaints of hematuria which has been ongoing since prior to Garcia placement. Patient notes he has follow-up with his urologist in [place]. No new changes. This is flushing well. No urinary re tention. No new symptoms at this time. No fever or chills. Patient and family reassured. Advised to follow-up with urology as scheduled. Discharged home in stable condition. Discussed return precautions with patient and family who verbalized agreement. Patient and family were also given referral to see our urologist here in [place] if they would like to have follow-up closer to them. Undiagnosed new problem with uncertain prognosis? @ -No Drug Therapy requiring intensive monitoring for toxicity (Heparin, Nitro, Insulin, Cardizem)? @ -No Were any procedures done? @ -No Diagnosis/symptom? @ -Hematuria Acute, or Chronic, or Acute on Chronic? @ -Acute Uncomplicated (without systemic symptoms) or Complicated (systemic symptoms)? @ -Uncomplicated Side effects of treatment? @ -No Exacerbation, Progression, or Severe Exacerbation? @ -No Poses a threat to life or bodily function? How? (Chest pain, [place], [place], pneumonia, PE, COPD, DKA, ARF, appy, cholecystitis, CVA, Diverticulitis, Homicidal, Suicidal, threat to staff... and all critical care pts) @ -No Disposition Clinical Impression: Hematuria Disposition: HOME SELF-CARE Condition: Good Additional Instructions: Please return to the Emergency Department if symptoms worsen or any other concerns. Please follow-up with your urologist. Is patient prescribed a controlled substance at d/c from ED?: No Referrals: Yaquelin Nice MD [Primary Care Provider] - 1-2 days Time of Disposition: 21:37
== END 2023-05-19 21:58 | disposition home or self-care (01) ==
LOC: EC 19:16
DX: R31.9 Hematuria, unspecified (principal)
CPT/HCPCS: 99283

== ENCOUNTER 2023-05-30 03:57 | Emergency (ER) | payer MEDICARE ==
[2023-05-30 04:26] VITALS: BP 155/88; PULSE 68; RESP 18; TEMP 98.1
[2023-05-30 05:07] LABS: Appearance,Urine Cloudy (Clear); Bacteria,Urine Few /hpf; Bilirubin,Urine Negative (Negative); Blood,Urine Small (Negative); Color,Urine Light Yellow; Glucose,Urine (UA) Negative (Negative); Ketones,Urine Negative (Negative); Leukocyte Esterase,Urine Large (Negative); Mucus,Urine Rare /hpf; Nitrite,Urine Negative (Negative); PH, Urine 6.5 (5.0-8.0); Protein,Urine 1+ (Negative); RBC,Urine 25 /hpf (0-5); Specific Gravity,Urine 1.013 (1.001-1.035); Urobilinogen,Urine <2.0 mg/dL (<2.0); WBC,Urine >182 /hpf (0-5)
--- NOTE | 2023-05-30 05:07 | ED ---
General Adult HPI - General Chief complaint: Urogenital Stated complaint: unable to urinate Time Seen by Provider: 05/30/23 04:11 Source: patient, RN notes reviewed, old records reviewed Mode of arrival: ambulatory Limitations: no limitations - History of Present Illness Initial comments: Patient is an 82-year-old male with past medical history remarkable for prostate cancer as well as recent Garcia catheter placement who presents emergency department complaining of inability to urinate. Has noticed a decrease in amount of urination for last few nights but is worse this evening and he was unable to urinate at all. Recently had a Garcia catheter removed 1 week ago. Denies any other acute complaints at this time. Has not yet been able to follow-up with his new urologist Dr. Polanco. Presents for further evaluation. - Related Data Home Medications Medication Instructions Recorded Confirmed Ascorbic Acid [Vitamin C] 500 mg PO DAILY 05/16/23 05/16/23 Calcium Carbonate [Calcium] 2,400 mg PO DAILY 05/16/23 05/16/23 Cholecalciferol [Vitamin D3 (25 200 mcg PO DAILY 05/16/23 05/16/23 Mcg = 1000 Iu)] Curcumin-Phosphatidylcholine 500 mg PO DAILY 05/16/23 05/16/23 [Curcumin Phytosome] L.acidoph,Paracasei, B.lactis 1 cap PO DAILY 05/16/23 05/16/23 [Probiotic] Liver Detox Supplement 1 cap PO DAILY 05/16/23 05/16/23 Niacin 500 mg PO DAILY 05/16/23 05/16/23 Nebo Guard Supplement 6 cap PO DAILY 05/16/23 05/16/23 Prasterone (Dhea) [Dhea] 50 mg PO DAILY 05/16/23 05/16/23 Selenium 100 mcg PO DAILY 05/16/23 05/16/23 Tamsulosin [Flomax] 0.4 mg PO DAILY 05/16/23 05/16/23 Thyroid,Pork [Lung Splitter Thyroid] 60 mg PO DAILY 05/16/23 05/16/23 Ubidecarenone [Q-Sorb Co Q-10] 200 mg PO DAILY 05/16/23 05/16/23 Vitamin B Complex 1 cap PO DAILY 05/16/23 05/16/23 Zinc Gluconate [Zinc] 50 mg PO DAILY 05/16/23 05/16/23 Allergies Allergy/AdvReac Type Severity Reaction Status Date / Time No Known Allergies Allergy Verified 05/30/23 04:08 Review of Systems ROS Statement: Those systems with pertinent positive or pertinent negative responses have been documented in the HPI. Review of Systems: CONST: Denies fever EYES: Denies blurry vision ENT: Denies nasal congestion C/V: Denies Chest pain RESP: Denies shortness of breath GI: Endorses suprapubic abdominal fullness : Denies dysuria SKIN: Denies rash. MSK: Denies joint pain. NEURO: Denies headache ROS Other: All systems not noted in ROS Statement are negative. Past Medical History Past Medical History: Cancer Additional Past Medical History / Comment(s): urinary retention. prostate issues. prostate cx History of Any Multi-Drug Resistant Organisms: None Reported Past Surgical History: Orthopedic Surgery Additional Past Surgical History / Comment(s): prostate surgery Past Psychological History: No Psychological Hx Reported Smoking Status: Never smoker Past Alcohol Use History: None Reported Past Drug Use History: None Reported General Exam - General Exam Comments Initial Comments: General: Appears in no acute distress. HEAD: Normal with no signs of head trauma. EYES: EOMI. ENT: Hearing grossly intact. RESPIRATORY: No respiratory distress. C/V: Regular rate and rhythm. ABD: Abdomen is mildly distended in the suprapubic region. Mild tenderness. No guarding. No rebound tenderness. No peritoneal signs. EXT: No obvious deformity. SKIN: No rashes or lesions observed on exposed skin. NEURO: Alert and oriented. Limitations: no limitations Course Vital Signs 05/30/23 04:07 Temperature 98.1 F Pulse Rate 68 Respiratory 18 Rate Blood Pressure 155/88 O2 Sat by Pulse 98 Oximetry Medical Decision Making - Medical Decision Making Was pt. sent in by a medical professional or institution (, PA, SENIOR SAS PROGRAMMER, urgent care, hospital, or usp...) When possible be specific @ -No Did you speak to anyone other than the patient for history (EMS, parent, family, police, friend...)? What history was obtained from this source @ -No Did you review nursing and triage notes (agree or disagree)? Why? @ -I reviewed and agree with nursing and triage notes Were old charts reviewed (outside hosp., previous admission, EMS record, old EKG, old radiological studies, urgent care reports/EKG's, usp records)? Report findings @ -Old charts reviewed Differential Diagnosis (chest pain, altered mental status, abdominal pain women, abdominal pain men, vaginal bleeding, weakness, fever, dyspnea, syncope, headache, dizziness, GI bleed, back pain, seizure, CVA, palpatations, mental health, musculoskeletal)? @ -Urinary retention, UTI. This list is not all inclusive. EKG interpreted by me (3pts min.). @ -None done X-rays interpreted by me (1pt min.). @ -None done CT interpreted by me (1pt min.). @ -None done U/S interpreted by me (1pt. min.). @ -None done What testing was considered but not performed or refused? (CT, X-rays, U/S, labs)? Why? @ -None What meds were considered but not given or refused? Why? @ -I offered Tylenol or ibuprofen which was declined. Did you discuss the management of the patient with other professionals (professionals i.e. , PA, SENIOR SAS PROGRAMMER, lab, RT, psych nurse, high school social science teacher, powder line repairer, teacher, supervisory cbp officer, casework manager)? Give summary @ -No Was smoking cessation discussed for >3mins.? @ -No Was critical care preformed (if so, how long)? @ -No Were there social determinants of health that impacted care today? How? ( Homelessness, low income, unemployed, alcoholism, drug addiction, transportation, low edu. Level, literacy, decrease access to med. care, penitentiary, rehab)? @ -No Was there de-escalation of care discussed even if they declined (Discuss DNR or withdrawal of care, Hospice)? DNR status @ -No What co-morbidities impacted this encounter? (DM, HTN, Smoking, COPD, CAD, Cancer, CVA, ARF, Chemo, Hep., AIDS, mental health diagnosis, sleep apnea, morbid obesity)? @ -Prostate issues, Garcia catheter placement Was patient admitted / discharged? Hospital course, mention meds given and route, prescriptions, significant lab abnormalities, going to OR and other pertinent info. @ -Based on the patient's presentation and physical exam, presents emergency department complaining of urinary retention. Bladder scan obtained showed over 500 cc of urine present. Garcia catheter was placed and had output of over 500 cc of urine. We will send for urinalysis. I discussed at length with the patient and he will attempt to follow-up with his new urologist sooner, as he does not have an appointment for 2 months. We will continue to monitor him here in the department while we wait for urinalysis. He was in agreement this plan. Patient's pain resolved upon Garcia catheter placement. Urinalysis remarkable for concerning signs of UTI. We will start the patient on ciprofloxacin twice daily. He will be given a dose prior to discharge as well as a prescription. He will be given a leg bag for his Garcia catheter. He was in agreement this plan. I will provide the patient with a prescription for ciprofloxacin. I instructed the patient to follow up with their PCP in the next 1-3 days. I provided contact information for follow up with urology. I explained that the patient should return to the emergency department if they experience any worsening symptoms. Strict return precautions were discussed with the patient. The patient expressed understanding of these instructions. I answered all questions that the patient had. The patient was discharged home in good condition with their prescriptions and follow up information. Undiagnosed new problem with uncertain prognosis? @ -No Drug Therapy requiring intensive monitoring for toxicity (Heparin, Nitro, Insulin, Cardizem)? @ -No Were any procedures done? @ -No Diagnosis/symptom? @ -Urinary retention, Garcia catheter placement, UTI Acute, or Chronic, or Acute on Chronic? @ -Acute Uncomplicated (without systemic symptoms) or Complicated (systemic symptoms)? @ -Complicated Side effects of treatment? @ -No Exacerbation, Progression, or Severe Exacerbation? @ -No Poses a threat to life or bodily function? How? (Chest pain, [place], [place], pneumonia, PE, COPD, DKA, ARF, appy, cholecystitis, CVA, Diverticulitis, Homicidal, Suicidal, threat to staff... and all critical care pts) @ -Unlikely - Lab Data Lab Results 05/30/23 Range/Units 04:32 Urine Color Light Yellow Urine Appearance Cloudy (Clear) Urine pH 6.5 (5.0-8.0) Ur Specific [place] 1.013 (1.001-1.035) Urine Protein 1+ H (Negative) Urine Glucose (UA) Negative (Negative) Urine Ketones Negative (Negative) Urine Blood Small H (Negative) Urine Nitrite Negative (Negative) Urine Bilirubin Negative (Negative) Urine Urobilinogen <2.0 (<2.0) mg/dL Ur Leukocyte Esterase Large H (Negative) Urine RBC 25 H (0-5) /hpf Urine WBC >182 H (0-5) /hpf Urine WBC Clumps Moderate H (None) /hpf Urine Bacteria Few H (None) /hpf Urine Mucus Rare H (None) /hpf Disposition Clinical Impression: UTI (urinary tract infection), Garcia catheter in place, Urinary retention Disposition: HOME SELF-CARE Condition: Good Instructions (If sedation given, give patient instructions): Urinary Tract Infection in Men (ED), Garcia Catheter Placement and Care (ED) Is patient prescribed a controlled substance at d/c from ED?: No Referrals: Yaquelin Nice MD [Primary Care Provider] - 1-2 days Blake Polanco MD [STAFF PHYSICIAN] - 1-2 days Time of Disposition: 05:11
[2023-05-30] MEDS: CIPROFLOXACIN HCL 500 MG TAB PO STA (05:26)
== END 2023-05-30 05:31 | disposition home or self-care (01) ==
LOC: EC 03:57
DX: T83.091A Other mechanical complication of indwelling urethral catheter, initial encounter (principal); N39.0 Urinary tract infection, site not specified
CPT/HCPCS: 51702; 51798; 81001; 87086; 99284

== ENCOUNTER → 2024-01-02 | Outpatient (CLI) | payer MEDICARE ==
--- NOTE | 2024-01-02 09:19 | US ---
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 FINDINGS: EXAM MEASUREMENTS: Liver Length: 13.1 cm Gallbladder Wall: 0.2 cm CBD: 0.6 cm Right Kidney: 14.8 x 6.3 x 6.0 cm DEHYDROGENATION CONVERTER OPERATOR NOTES: Pancreas: Obscured by bowel gas Liver: Visualized portions appeared wnl Gallbladder: wnl Evidence for sonographic Rowley's sign: No CBD: wnl Right Kidney: Multicystic with large cyst mid/lower pole= 12.6 x 9.1 x 13.4 cm peripelvic renal cy sts are also present. IMPRESSION: 1. No evidence for acute process. 2. Large right renal cysts measuring up to 13.4 centers. [facility], , 01/02/2024 9:17 AM
== END | disposition home or self-care (01) ==
LOC: RADUSWWP 08:43
PROVIDERS: ATTEND Ophthalmology
DX: C69.31 Malignant neoplasm of right choroid
CPT/HCPCS: 76705

== ENCOUNTER → 2024-06-23 | Outpatient (CLI) | payer MEDICARE ==
--- NOTE | 2024-06-23 08:00 | US ---
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 FINDINGS: EXAM MEASUREMENTS: Liver Length: 13.7 cm Gallbladder Wall: 0.3 cm CBD: 0.5 cm Right Kidney: 16.0 x 10.9 x 9.0 cm COMMAND AND CONTROL SYSTEMS INTEGRATOR NOTES:bowel gas subcostally limits exam Pancreas: portions seen appear wnl Liver: wnl Gallbladder: probable fold near neck Evidence for sonographic Rowley's sign: no CBD: wnl Right Kidney: multiple cysts, largest medially = 12.7 x 12.8 x 8.6cm IMPRESSION: 1. No evidence for acute process. 2. Renal cortical cysts [facility], , 06/23/2024 7:58 AM
== END | disposition home or self-care (01) ==
LOC: RADUSWWP 07:06
PROVIDERS: ATTEND Ophthalmology
DX: C69.31 Malignant neoplasm of right choroid (principal); N28.1 Cyst of kidney, acquired
CPT/HCPCS: 76705